=== PATIENT | female | born 1935 | race Caucasian/White ===

== ENCOUNTER 2021-06-06 21:05 | Inpatient (IN) | payer OTHER ==
--- NOTE | 2021-06-06 21:53 | RAD REPORT ---
EXAM DESCRIPTION: RAD - Chest Single View - 06/06/2021 9:44 pm CLINICAL HISTORY: SOB COMPARISON: CHEST PA AND LAT 2 VIEW dated 03/25/2008; CHEST PA AND LAT 2 VIEW dated 10/17/2007 FINDINGS: Lines: Right subclavian approach pacemaker/ICD. Lungs: Increased prominence of the pulmonary vasculature. Pleural: Small right effusion. Cardiac: Cardiomegaly. Status post TAVR. Bones: No acute fractures. Other: Surgical clips in the right upper quadrant. Atherosclerosis. IMPRESSION: Increased prominence of the pulmonary vasculature likely representing edema. Pneumonia d ifficult to entirely exclude.
[2021-06-06] MEDS ORDERED: LEVALBUTEROL 1.25 MG/3 ML NEB ONE (22:23)
[2021-06-06 23:23] LABS: Protime INR 1.03
[2021-06-06] MEDS ORDERED: NA CHLORIDE 0.9% 250 ML ONE (23:23)
[2021-06-06] MEDS ORDERED: FENTANYL CITR 100 MCG/2 ML ONE (23:50)
[2021-06-07 00:46] LABS: Absolute Lymphocytes (CBC) 0.7 K/uL (0.7-4.9); Basophils % 0.2 % (0-1.3); Hematocrit 26.8 % (36.0-45.0); Lymphocytes % 5.6 % (15.3-44.8); MPV 7.8 fL (7.6-11.3); RBC Red Blood Cell Count 2.87 M/uL (3.86-4.86)
[2021-06-07 01:13] LABS: Blood Morphology Comment NOT SEEN (NOT SEEN); Platelet Estimate ADEQ
--- NOTE | 2021-06-07 02:21 | EDPHYS ---
Physician Documentation [facility] Name: Nida Schuster Age: 85 yrs Sex: Female : 1935 Arrival Date: 06/06/2021 Time: 21:11 Bed 2 Private MD: Angelito Veliz HPI: 06/07 00:46 This 85 yrs old Female presents to ER via EMS with complaints of Shortness Of jmm Breath. 00:46 The patient has shortness of breath at rest. Onset: The symptoms/episode began/occurred jmm today. Duration: The symptoms are continuous. The patient's shortness of breath is aggravated by nothing, is alleviated by nothing. Associated signs and symptoms: Pertinent positives: non-productive cough. The patient has experienced similar episodes in the past. Patient recently hospitalized for Covid, pneumonia, and UTI. Daughter states patient is a DNR.. Historical: - Allergies: 06/06 21:22 Codeine; kc4 21:22 PENICILLINS; kc4 21:22 Tetanus Vaccines \T\ Toxoid; kc4 21:22 Tomato (Solanum Lycopersicum); kc4 - Home Meds: 21:30 acetaminophen 325 mg Oral tab 2 tabs every 6 hours for pain [Active]; Arginaid 4.5 kc4 gram-156 mg/9.2 gram oral pwpk [Active]; ascorbic acid (vitamin C) 500 mg tab daily for wound healing [Active]; aspirin 81 mg Oral chew 1 tab once daily for essential hyertension [Active]; atorvastatin 10 mg oral tab 1 tab once daily for hyperlipidemia [Active]; bumetanide 2 mg Oral tab 1 tab once daily for heart failure [Active]; clopidogrel 75 mg oral tab 1 tab once daily for hypertension [Active]; cranberry 450 mg oral tab daily for Urinary tract infection [Active]; famotidine 10 mg Oral tab 1 tab 2 times per day for gastroesophageal reflux disease, heartburn, heartburn prevention [Active]; fluocinolone 0.025 % Topical oint 3 times per day for skin inflammation [Active]; lisinopril 2.5 mg Oral tab 1 tab once daily for hypertension [Active]; metoprolol tartrate 25 mg Oral tab 1 tab 2 times per day for hypertension [Active]; polyethylene glycol 3350 17 gram oral pwpk 1 packet once daily for constipation [Active]; potassium chloride 8 mEq Oral TbER 1 tab once daily for hyretension [Active]; - PMHx: 21:22 Heart disease; Diabetes mellitus; Hypertensive disorder; Congestive heart failure; kc4 History of urinary tract infection; - Immunization history:: Adult Immunizations not up to date, Client reports having NOT received the Covid vaccine. Last tetanus immunization: unknown, Pneumococcal vaccine is up to date, Flu vaccine is up to date. Hepatitis A vaccine status is unknown. Hepatitis B vaccine status is unknown. Meningococcal vaccine status is unknown. - Social history:: Smoking status: Patient denies any tobacco usage or history of. ROS: 06/07 00:46 Constitutional: Positive for body aches, fatigue. jmm Respiratory: Positive for cough, shortness of breath. All other systems are negative. Exam: 00:46 Head/Face: atraumatic. Eyes: EOMI, no conjunctival erythema appreciated ENT: Moist jmm Mucus Membranes Neck: Trachea midline, Supple Chest/axilla: Normal chest wall appearance and motion. Cardiovascular: Regular rate and rhythm. No edema appreciated Respiratory: Normal respirations, no respiratory distress appreciated Abdomen/GI: Non distended, soft 00:46 Constitutional: The patient appears alert, awake, frail. 00:46 Musculoskeletal/extremity: Bilateral pedal edema appreciated. 00:46 Skin: Ulcer noted to the surgery sacral area.. 00:46 Neuro: Motor: is normal. 00:46 Psych: Behavior/mood is cooperative, anxious. Vital Signs: 06/06 21:12 BP 120 / 72; Pulse 82; Resp 20; Temp 98.7(A); Pulse Ox 100% on R/A; Weight 36.29 kg; kc4 Height 5 ft. 4 in. (162.56 cm); Pain 10/10; 23:15 BP 110 / 57; Pulse 88; Resp 22; Temp 98.7(A); Pulse Ox 98% on R/A; Pain 05/21; kc4 06/07 00:41 BP 101 / 41; Pulse 82; Resp 20; Temp 98.6(A); Pulse Ox 100% on R/A; kc4 01:18 BP 102 / 41; Pulse 78; Resp 20; Pulse Ox 100% on R/A; kc4 02:20 BP 104 / 43; Pulse 82; Resp 20; Temp 98.6(A); Pulse Ox 100% on R/A; [facility] 03:28 BP 102 / 52 LA Sitting (man/reg); Pulse 80; Resp 20; Temp 98.7(A); Pulse Ox 99% on R/A; 4 06/06 21:12 Body Mass Index 13.73 (36.29 kg, 162.56 cm) [facility] 01:18 pt sleeping comfortably [facility] Procedures: 06/06 23:10 Peripheral line: by aseptic technique a peripheral line was placed in the right lawrence external jugular vein. MDM: 21:13 Patient medically screened. [facility] 06/07 02:17 Data reviewed: vital signs, nurses notes. Counseling: I had a detailed discussion with [facility] the patient and/or guardian regarding: the historical points, exam findings, and any diagnostic results supporting the discharge/admit diagnosis, lab results, the need for further work-up and treatment in the hospital. 06/06 21:12 Order name: Basic Metabolic Panel [facility] 06/06 21:12 Order name: CBC with Diff; Complete Time: 01:19 [facility] 06/06 21:12 Order name: LFT's [facility] 06/06 21:12 Order name: Magnesium [facility] 06/06 21:12 Order name: NT PRO-BNP [facility] 06/06 21:12 Order name: PT-INR; Complete Time: 23:26 [facility] 06/06 21:12 Order name: Troponin (emerg Dept Use Only) [facility] 06/06 21:12 Order name: XRAY Chest (1 view); Complete Time: 21:58 [facility] 06/06 21:12 Order name: Procalcitonin; Complete Time: 01:19 [facility] 06/06 21:12 Order name: Lactate; Complete Time: 00:02 [facility] 06/06 21:12 Order name: Blood Culture Adult (2) [facility] 06/06 23:17 Order name: SARS-COV-2 RT PCR; Complete Time: 00:16 [facility] 06/07 00:48 Order name: Manual Differential; Complete Time: 01:19 [facility] 06/06 21:12 Order name: EKG; Complete Time: 21:12 [facility] 06/06 21:12 Order name: Cardiac monitoring; Complete Time: 23:14 [facility] 06/06 21:12 Order name: EKG - Nurse/Tech; Complete Time: 23:14 [facility] 06/06 21:12 Order name: IV Saline Lock; Complete Time: 21:56 [facility] 06/06 21:12 Order name: Labs collected and sent; Complete Time: 23:14 [facility] 06/06 21:12 Order name: O2 Per Protocol; Complete Time: 21:56 [facility] 06/06 21:12 Order name: O2 Sat Monitoring; Complete Time: 21:56 [facility] 06/07 00:24 Order name: Misc. Order: Do not resuscitate [facility] 06/07 00:32 Order name: Labs - recollect needed: green and lavender please; Complete Time: 01:40 em Administered Medications: 06/06 22:02 Drug: Xopenex (levalbuterol) (3) 1.25 mg Route: Inhalation; vg1 22:30 Follow up: Response: No adverse reaction kc4 23:14 Follow up: Response: No adverse reaction kc4 22:58 Drug: NS 0.9% 250 ml Route: IV; Rate: bolus; Site: right forearm; em 23:10 Follow up: Response: No adverse reaction; IV Status: Completed infusion kc4 23:25 Drug: fentaNYL (PF) 25 mcg Route: IVP; Site: Other; kc4 06/07 02:46 Follow up: Response: No adverse reaction; Pain is decreased kc4 02:37 Drug: Potassium Chloride 20 mEq Route: IV; Rate: calculated rate; Site: left forearm; kc4 02:38 Drug: NS 0.9% 500 ml Route: IV; Rate: bolus; Site: right jugular; kc4 03:19 Not Given (Physician Discretion): Lovenox (enoxaparin) 1 mg/kg Sub-Q once em Disposition: 08:02 Co-signature as Attending Physician, Angelito Yen MD I agree with the assessment and lawrence plan of care. Disposition Summary: 06/07/21 02:18 Hospitalization Ordered Hospitalization Status: Inpatient Admission [facility] Location: Telemetry/MedSur (Inpatient) jmm Condition: Stable jmm Problem: new jmm Symptoms: are unchanged jmm Bed/Room Type: Standard jmm Provider: Jamar Stack(06/07/21 02:20) [facility] Room Assignment: [facility](06/07/21 02:32) Diagnosis - Hyperosmolality and hypernatremia jmm - Dehydration jmm - Heart failure, unspecified [facility] Discharge Instructions: - Discharge Summary Sheet kc4 Forms: - Medication Reconciliation Form jmm - SBAR form kc4 Signatures: Dispatcher [employer] EDYing Hhan RN Angelito Troy MD MD cha Mickail, Joel, PA PA jmm Munoz, Edgar, RN RN em Attema, Lee, ION IMPLANT MACHINE OPERATOR-C ION IMPLANT MACHINE OPERATOR-[facility]1 Miguelina Moody RN RN 1 Татьяна Hendricks kc4 Corrections: (The following items were deleted from the chart) 06/06 23:17 21:13 CORONAVIRUS+MR.LAB.BRZ ordered. [facility] EDAK 06/07 02:20 02:18 [facility] 02:32 02:18 victorino alexander
--- NOTE | 2021-06-07 02:21 | ER ---
Nurse's Notes [facility] Name: Nida Schuster Age: 85 yrs Sex: Female : 1935 Arrival Date: 06/06/2021 Time: 21:11 Bed 2 Private MD: Diagnosis: Hyperosmolality and hypernatremia;Dehydration;Heart failure, unspecified Presentation: 06/06 21:12 Chief complaint: Patient states: pt came via EMS from [facility]. c/c SOB, kc4 placed on 2 L NC at facility for comfort 02 sat \T\100%\S\ facility also states she has not been eating the last 3 days. Coronavirus screen: Client denies travel out of the [place] in the last 14 days. Ebola Screen: Patient negative for fever greater than or equal to 101.5 degrees Fahrenheit, and additional compatible Ebola Virus Disease symptoms Patient denies exposure to infectious person. Patient denies travel to an Ebola-affected area in the 21 days before illness onset. No symptoms or risks identified at this time. Initial Sepsis Screen: Does the patient meet any 2 criteria? No. Patient's initial sepsis screen is negative. Does the patient have a suspected source of infection? No. Patient's initial sepsis screen is negative. Risk Assessment: Do you want to hurt yourself or someone else? Patient reports no desire to harm self or others. Onset of symptoms was June 06, 2021 at 16:00. 21:12 Method Of Arrival: EMS [facility] 21:12 Acuity: GOPAL 2 kc4 23:40 Note pt straight cath, unable to get any urine. pt is dry. kc4 06/07 00:40 Note re-draw on labs completed. kc4 00:42 Note pt sleeping, appears to be comfortably and not in any apparent distress. kc4 Triage Assessment: 06/06 21:30 General: Appears slender, malnourished, cachectic, Behavior is cooperative, appropriate kc4 for age, flat, quiet, Reports feeling ill for fatigue for 2-3 days, Denies fever, chills. Pain: Complains of pain in generalized Pain currently is 8 out of 10 on a pain scale. at worst was 8 out of 10 on a pain scale. level that patient reports is acceptable is 1 out of 10 on a pain scale. Quality of pain is described as aching, Pain began 2-3 days ago. Is continuous, Alleviated by medications, Aggravated by eating, drinking, increased activity, repositioning, weight bearing, Noted to be resistant to movement. EENT: No deficits noted. Neuro: No deficits noted. Cardiovascular: No deficits noted. Respiratory: Reports shortness of breath since 06/06/21 around 1600 Airway is patent Trachea midline Respiratory effort is even, Respiratory pattern is regular, symmetrical, Ventilator assessment: HOB > 30 degrees. Onset: The symptoms/episode began/occurred gradually, the patient has mild shortness of breath. GI: No deficits noted. No signs and/or symptoms were reported involving the gastrointestinal system. : No deficits noted. No signs and/or symptoms were reported regarding the genitourinary system. Derm: No deficits noted. Skin is thin, with poor turgor Skin is dry, Skin is pale, Skin temperature is warm. Musculoskeletal: No deficits noted. No signs and/or symptoms reported regarding the musculoskeletal system. Historical: - Allergies: 21:22 Codeine; kc4 21:22 PENICILLINS; kc4 21:22 Tetanus Vaccines \T\ Toxoid; kc4 21:22 Tomato (Solanum Lycopersicum); kc4 - Home Meds: 21:30 acetaminophen 325 mg Oral tab 2 tabs every 6 hours for pain [Active]; Arginaid 4.5 kc4 gram-156 mg/9.2 gram oral pwpk [Active]; ascorbic acid (vitamin C) 500 mg tab daily for wound healing [Active]; aspirin 81 mg Oral chew 1 tab once daily for essential hyertension [Active]; atorvastatin 10 mg oral tab 1 tab once daily for hyperlipidemia [Active]; bumetanide 2 mg Oral tab 1 tab once daily for heart failure [Active]; clopidogrel 75 mg oral tab 1 tab once daily for hypertension [Active]; cranberry 450 mg oral tab daily for Urinary tract infection [Active]; famotidine 10 mg Oral tab 1 tab 2 times per day for gastroesophageal reflux disease, heartburn, heartburn prevention [Active]; fluocinolone 0.025 % Topical oint 3 times per day for skin inflammation [Active]; lisinopril 2.5 mg Oral tab 1 tab once daily for hypertension [Active]; metoprolol tartrate 25 mg Oral tab 1 tab 2 times per day for hypertension [Active]; polyethylene glycol 3350 17 gram oral pwpk 1 packet once daily for constipation [Active]; potassium chloride 8 mEq Oral TbER 1 tab once daily for hyretension [Active]; - PMHx: 21:22 Heart disease; Diabetes mellitus; Hypertensive disorder; Congestive heart failure; kc4 History of urinary tract infection; - Immunization history:: Adult Immunizations not up to date, Client reports having NOT received the Covid vaccine. Last tetanus immunization: unknown, Pneumococcal vaccine is up to date, Flu vaccine is up to date. Hepatitis A vaccine status is unknown. Hepatitis B vaccine status is unknown. Meningococcal vaccine status is unknown. - Social history:: Smoking status: Patient denies any tobacco usage or history of. Screenin:47 Abuse screen: Denies threats or abuse. Denies injuries from another. Nutritional kc4 screening: On no prescribed diet Difficulty chewing/swallowing? Yes. Tuberculosis screening: No symptoms or risk factors identified. Never had TB. Possible symptoms: None Risk factors: None. Fall Risk No fall in past 12 months (0 pts). Secondary diagnosis (15 points) impaired mobility, IV access (20 points). Ambulatory Aid- None/Bed Rest/Nurse Assist (0 pts). Gait- Impaired (20 pts.). Mental Status- Oriented to own ability (0 pts). Total Tony Fall Scale indicates High Risk Score (45 or more points). Assessment: 21:50 Respiratory: Airway is patent Trachea midline Respiratory effort is even, Respiratory kc4 pattern is symmetrical, Breath sounds with crackles bilaterally. Breath sounds are diminished bilaterally. 21:50 Cardiovascular: Denies chest pain, diaphoresis, lightheadedness, nausea, palpitations, kc4 syncope, vomiting, Rhythm is atrial pacer Chest pain is denied. 23:30 General: Appears uncomfortable, malnourished, cachectic, Behavior is cooperative, kc4 appropriate for age, restless. Pain: Complains of pain in buttocks Pain currently is 8 out of 10 on a pain scale. at worst was 10 out of 10 on a pain scale. level that patient reports is acceptable is 1 out of 10 on a pain scale. Quality of pain is described as aching, sharp, throbbing, stinging, Pain began Is continuous, Alleviated by medications, repositioning, Aggravated by repositioning, Noted to be moaning, restless, Also complains of. Neuro: Level of Consciousness is awake, alert, obeys commands, Oriented to person, place, time, situation, Appropriate for age [employer] Cash[employer] are weak bilaterally Weakness Gait is Speech whispers. Facial symmetry appears normal. EENT: Oral mucosa is dry. Reports difficulty swallowing. Derm: Decubitus located on sacrum approximately 1.5 cm to 2.5 cm is stage II has erythematous edges bed has granulation present is draining none noted Reports increased pain that is 8 out of 10 on a pain scale. Musculoskeletal:. Vital Signs: 21:12 BP 120 / 72; Pulse 82; Resp 20; Temp 98.7(A); Pulse Ox 100% on R/A; Weight 36.29 kg; kc4 Height 5 ft. 4 in. (162.56 cm); Pain 10/10; 23:15 BP 110 / 57; Pulse 88; Resp 22; Temp 98.7(A); Pulse Ox 98% on R/A; Pain 10/10; kc4 06/07 00:41 BP 101 / 41; Pulse 82; Resp 20; Temp 98.6(A); Pulse Ox 100% on R/A; kc4 01:18 BP 102 / 41; Pulse 78; Resp 20; Pulse Ox 100% on R/A; kc4 02:20 BP 104 / 43; Pulse 82; Resp 20; Temp 98.6(A); Pulse Ox 100% on R/A; kc4 03:28 BP 102 / 52 LA Sitting (man/reg); Pulse 80; Resp 20; Temp 98.7(A); Pulse Ox 99% on R/A; kc4 06/06 21:12 Body Mass Index 13.73 (36.29 kg, 162.56 cm) kc4 01:18 pt sleeping comfortably kc4 Vitals: 06/06 23:37 Cardiac Rhythm Assessment Paced. kc4 ED Course: 21:11 Patient arrived in ED. kc4 21:11 Aleksandr Gutiérrez PA is PHCP. jmm 21:11 Angelito Yen MD is Attending Physician. jmm 21:12 Татьяна Hendricks is Primary Nurse. kc4 21:22 Triage completed. kc4 21:39 Missed attempt(s): 20 gauge in right antecubital area. ld1 21:44 XRAY Chest (1 view) In Process Unspecified. EDMS 21:46 Arm band placed on right wrist. kc4 21:49 pt daughter at bs. kc4 21:52 No provider procedures requiring assistance completed. Inserted saline lock: 20 gauge kc4 in right forearm, using aseptic technique. 21:53 Patient has correct armband on for positive identification. Bed in low position. Call kc4 light in reach. Side rails up X2. control clerk subassembly on. Pulse ox on. NIBP on. 23:14 Lactate Sent. kc4 23:14 Blood Culture Adult (2) Sent. kc4 23:14 Procalcitonin Sent. kc4 23:14 Basic Metabolic Panel Sent. kc4 23:14 CBC with Diff Sent. kc4 23:14 LFT's Sent. kc4 23:14 Magnesium Sent. kc4 23:14 NT PRO-BNP Sent. kc4 23:14 PT-INR Sent. kc4 23:14 Troponin (emerg Dept Use Only) Sent. kc4 23:15 Inserted saline lock: 18 gauge EJ, using aseptic technique. kc4 23:21 SARS-COV-2 RT PCR Sent. kc4 06/07 02:17 Jamar Stack DO is Hospitalizing Provider. jm 02:17 Hospitalizing Provider role handed off by Jamar Stack DO jm 02:17 Ramiro Phillips MD is Hospitalizing Provider. [facility] 02:20 Jamar Stack DO is Hospitalizing Provider. [facility] 03:28 Patient admitted, IV remains in place. kc4 Administered Medications: 06/06 22:02 Drug: Xopenex (levalbuterol) (3) 1.25 mg Route: Inhalation; vg1 22:30 Follow up: Response: No adverse reaction kc4 23:14 Follow up: Response: No adverse reaction kc4 22:58 Drug: NS 0.9% 250 ml Route: IV; Rate: bolus; Site: right forearm; em 23:10 Follow up: Response: No adverse reaction; IV Status: Completed infusion kc4 23:25 Drug: fentaNYL (PF) 25 mcg Route: IVP; Site: Other; kc4 06/07 02:46 Follow up: Response: No adverse reaction; Pain is decreased kc4 02:37 Drug: Potassium Chloride 20 mEq Route: IV; Rate: calculated rate; Site: left forearm; kc4 02:38 Drug: NS 0.9% 500 ml Route: IV; Rate: bolus; Site: right jugular; kc 03:19 Not Given (Physician Discretion): Lovenox (enoxaparin) 1 mg/kg Sub-Q once em Outcome: 02:18 Decision to Hospitalize by Provider. victorino 03:27 Admitted to Tele accompanied by nurse, via stretcher, room 404, Report called to [facility] Prince Moody 03:27 Condition: stable 03:27 Instructed on the need for admit. 04:11 Patient left the ED. [facility] Signatures: Dispatcher [employer] EDMS Aleksandr Gutiérrez PA PA jmm Munoz, Edgar, RN RN Miguelina Reyes RN RN vg1 Vera Hudson RN RN ld1 Татьяна Hendricks [facility] Corrections: (The following items were deleted from the chart) 06/06 23:17 23:14 CORONAVIRUS+ drawn and sent. [facility] EDCO
[2021-06-07] MEDS ORDERED: NA CHLORIDE 0.9% 500 ML ONE (02:53)
[2021-06-07] MEDS ORDERED: KCL 20 MEQ/100 mL IVPB 20 MEQ/100 ML BAG IV ONE (02:54)
[2021-06-07] MEDS ORDERED: NA CHLORIDE 0.9% 1,000 ML ONE (02:54)
[2021-06-07] MEDS ORDERED: ENOXAPARIN 40 MG/0.4 ML SQ ONE (03:42)
--- NOTE | 2021-06-07 04:23 | P.HP ---
Certification for Inpatient Patient admitted to: Inpatient With expected LOS: >2 Midnights Patient will require the following post-hospital care: None Practitioner: I am a practitioner with admitting privileges, knowledge of patient current condition, hospital course, and medical plan of care. Services: Services provided to patient in accordance with Admission requirements found in Title 42 Section 412.3 of the Code of Federal Regulations Patient History Date of Service: 06/07/21 Primary Care Provider: [facility] doctor Reason for admission: Dehydration, hypernatremia History of Present Illness: 85-year-old female resident of [facility] was complaining of shortness of breath, staff reported that patient has not been eating or drinking for last 3 days. Patient appeared cachectic, dehydrated upon arrival, patient was evaluated in the emergency department labs were significant for white blood cell count 12.7 hemoglobin 8.8 hematocrit 26.8 lactic acid 2.6 procalcitonin less than 0.05 sodium 153 potassium 2.5 albumin 1.5 BUN 63 CO2 31 magnesium 1.7 creatinine 1.12 BNP significantly elevated troponin 0 0.43 chloride 118. Chest x-ray appeared to show some increased prominence of pulmonary vasculature likely representing edema. Patient was given 500 cc NS bolus and started on NS 75 cc/h in the emergency department. Daughters at bedside, patient is DNR. Patient with history of CHF, CAD, diabetes mellitus type 2, hypertension and urinary tract infections. ED provider wishes to admit for dehydration, NSTEMI, hypernatremia, hypokalemia - Past Medical/Surgical History Diabetic: Yes -: CHFunknown EF -: Diabetes mellitus type II -: Hypertension -: CAD Past Surgical History: Unable to obtain Psychosocial/ Personal History: currently a resident at [facility] - Family History Family History: Reviewed- Non-Contributory - Social History Smoking Status: Unknown if ever smoked Alcohol use: No CD- Drugs: No Caffeine use: No Place of Residence: [facility] Review of Systems 10-point ROS is otherwise unremarkable General: Weakness, Malaise Respiratory: Cough, Shortness of Breath Physical Examination - Physical Exam General: Alert, In no apparent distress, Oriented x2, Cachectic HEENT: Atraumatic, PERRLA, Other (Mucous membranes dry, poor skin turgor), EOMI, Sclerae nonicteric Neck: Supple, 2+ carotid pulse no bruit, No LAD, Without JVD or thyroid abnormality Respiratory: Clear to auscultation bilaterally, Normal air movement Cardiovascular: Regular rate/rhythm, Normal S1 S2 Capillary refill: <2 Seconds Gastrointestinal: Normal bowel sounds, No tenderness Musculoskeletal: No tenderness Integumentary: No rashes Neurological: Normal speech, Normal tone, Normal affect - Studies Laboratory Data (last 24 hrs) 06/07/21 00:37: WBC 12.70 H, Hgb 8.8 L, Hct 26.8 L, Plt Count 322 06/06/21 23:00: PT 11.9, INR 1.03 Assessment and Plan - Plan Assessment: Dehydration, hypernatremia Hypokalemia NSTEMI Normocytic anemia Chronic congestive heart failureunknown EF Diabetes mellitus type 2 History of CAD Plan: Dehydration, hypernatremia: Continue with gentle hydration, NS at 75 cc/h recheck with daily labs. Patient with poor oral intake. Hypokalemia: Protocol in place, replaced in the emergency department as well. Will monitor with labs. NSTEMI: Patient denies any chest pain, have continued aspirin, Plavix which patient takes at home, patient did receive a dose of full dose Lovenox in the emergency department. Cardiology consult in place, echocardiogram ordered. Likely related to dehydration/demand ischemia. Normocytic anemia: Transfuse to maintain hemoglobin greater than 8, iron, ferritin, TIBC, folate, B12 levels pending. Chronic congestive heart failureunknown EF: Patient with history of CHFunknown when last echocardiogram was. Will order echocardiogram, cardiology consult already in place for NSTEMI. Diabetes mellitus type 2: A [facility] Accu-Chek, sliding scale insulin. History of CAD: Home medications continued including aspirin, Plavix. Monitor on telemetry continue as above. Discharge Plan: Home Plan to discharge in: Greater than 2 days - Advance Directives Does patient have a Living Will: No Does patient have a Durable POA for Healthcare: No - Code Status/Comfort Care Code Status Assessed: Yes (DNR) Critical Care: No Time Spent Managing Pts Care (In Minutes): 55
[2021-06-07 05:03] LABS: Albumin 1.5 g/dL (3.4-5.0); Bilirubin Direct 0.1 mg/dL (0-0.2); Bilirubin Total 0.3 mg/dL (0.2-1.0); Magnesium 1.7 mg/dL (1.8-2.4); Protein, Total 5.4 g/dL (6.4-8.2); Troponin (Emerg Dept Use Only) 0.44 ng/mL (0.0-0.045)
[2021-06-07 05:24] LABS: Potassium 2.5 mmol/L (3.5-5.1)
[2021-06-07] MEDS ORDERED: METOPROLOL TAR 25 MG TAB PO SCH ×2 (06:00→06:51)
[2021-06-07] MEDS ORDERED: NA CHLORIDE 0.9% 1,000 ML IV SCH (06:00)
[2021-06-07] MEDS ORDERED: D50W 25 GM/50 ML SYRINGE IV PRN (06:03)
[2021-06-07] MEDS ORDERED: GLUCAGON 1 MG/VIAL IM PRN (06:03)
--- NOTE | 2021-06-07 06:11 | P.PN ---
Subjective Date of Service: 06/07/21 Primary Care Provider: senior care doctor Chief Complaint: Dehydration, hypernatremia Subjective: Other (Overall stable. Patient reports difficulty with swallowing.) Physical Examination - Vital Signs Temperature: 98.7 F Blood Pressure: 102/52 Pulse: 80 Respirations: 20 - Studies Laboratory Data (last 24 hrs) 06/07/21 00:37: WBC 12.70 H, Hgb 8.8 L, Hct 26.8 L, Plt Count 322 06/07/21 00:37: Sodium 152 H, Potassium 2.5 L*, BUN 63 H, Creatinine 1.12, Glucose 161 H, Magnesium 1.7 L, Total Bilirubin 0.3, AST 13 L, ALT 11 L, Alkaline Phosphatase 73 06/06/21 23:00: PT 11.9, INR 1.03 Assessment & Plan Discharge Plan: Halfway Plan to discharge in: Greater than 2 days Physician Review Additional Text: COVID: Positive CXR: COMPARISON: CHEST PA AND LAT 2 VIEW dated 03/25/2008; CHEST PA AND LAT 2 VIEW dated 10/17/2007 FINDINGS: Lines: Right subclavian approach pacemaker/ICD. Lungs: Increased prominence of the pulmonary vasculature. Pleural: Small right effusion. Cardiac: Cardiomegaly. Status post TAVR. Bones: No acute fractures. Other: Surgical clips in the right upper quadrant. Atherosclerosis. IMPRESSION: Increased prominence of the pulmonary vasculature likely representing edema. Pneumonia difficult to entirely exclude. Physical exam: General: Alert, In no apparent distress, Oriented x2, Cachectic HEENT: Dry mouth Neck: Supple, 2+ carotid pulse no bruit, No LAD, Without JVD or thyroid abnormality Respiratory: Clear to auscultation bilaterally, Normal air movement. Currently on room air Cardiovascular: Regular rate/rhythm, Normal S1 S2 Capillary refill: <2 Seconds Gastrointestinal: Normal bowel sounds, No tenderness Musculoskeletal: No tenderness Integumentary: No rashes. Muscle wasting to the upper and lower extremities. Patient has chronic sacral ulcer. Neurological: Normal speech, Normal tone, Normal affect Assessment: Dehydration with moderate protein malnutrition complicated with hypernatremia and hypokalemia Elevated troponin likely ischemic demand Normocytic anemia Chronic congestive heart failureunknown EF Diabetes mellitus type 2 History of CAD Hypertension GERD Insomnia Chronic sacral ulcer Dysphagia Covid positive, asymptomatic Plan: Dehydration with moderate protein malnutrition complicated with hypernatremia and Hypokalemia: Case discussed in detail with daughter. Advanced directives addressed. Patient is DO NOT RESUSCITATE. Patient has been in and out of hospitals over the past several months for Covid, UTI and CHF. Daughter also reports patient has had difficulty with swallowing. Will start nystatin and Magic mouthwash. Will adjust IV fluids to D5 water. Recheck lab later today. Will consult speech therapy to evaluate swallowing. Patient may require modified barium swallow. Wound care consulted to address sacral wound. Restart home medication. Provide vitamin supplementation. Dietary to address daily needs. If her condition continues to decline we will respect her advanced directives. Daughter does not want any significant intervention like feeding tube, PEG tube. [facility] the [facility] 5 days. Case discussed at length with daughter. Elevated troponin likely ischemic demand: Case discussed at length with cardiology. No intervention required at this time. Continue with aspirin, Plavix. DVT prophylaxis in place. Normocytic anemia: Continue vitamin supplementation. Monitor hemoglobin. Chronic congestive heart failureunknown EF: We will obtain echocardiogram. Cardiology recommends no further intervention. Will monitor closely. Hold diuretic therapy at this time. Diabetes mellitus type 2: Continue Accu-Cheks and sliding scale. History of CAD: Continue with aspirin and Plavix. Hypertension: Continue with metoprolol. Parameters in place. GERD: Continue with Pepcid Insomnia: Continue with trazodone Chronic sacral ulcer: Wound care to evaluate and treat. Dysphagia: Suspect candidiasis. Will start nystatin. Will provide swish and swallow solutionMagic mouthwash. Speech pathology to evaluate. Covid positive asymptomatic: Patient recently hospitalized for Covid. Currently on room air. No intervention needed at this time. Discharge Plan: Spoke with daughter at length. Patient is DO NOT RESUSCITATE. Daughter plans to have patient [facility] the [facility]. No aggressive measures as per daughter. Code Status: DNR DVT prophylaxis: [employer] Time Spent Managing Pts Care (In Minutes): 55
[2021-06-07 06:39] VITALS: BMI 14.1
[2021-06-07] MEDS ORDERED: POLYETHYL GLY 3350 17 GM/DOSE PO PRN (06:51)
[2021-06-07] MEDS: INSULIN -REGULAR HUMAN 50 UNIT/0.5 ML ML SQ SCH ×4 (07:30→21:00)
[2021-06-07 07:35] LABS: Ferritin 609.7 ng/mL (8-388); Folic Acid, (Folate) 13.1 ng/mL (3.1-17.5); Thyroid Stimulating Hormone 1.47 uIU/mL (0.360-3.740); Troponin I 0.35 ng/mL (0.0-0.045)
[2021-06-07] MEDS: ZINC SULFATE 220 MG CAP PO SCH (08:03)
[2021-06-07] MEDS: ASPIRIN 81 MG CHEWABLE TABLET PO SCH (08:03)
[2021-06-07] MEDS: ASCORBIC ACID 500 MG TABLET PO SCH ×2 (08:03→21:18)
[2021-06-07] MEDS: MULTIVITAMIN TAB PO SCH (08:03)
[2021-06-07] MEDS: FAMOTIDINE 20 MG TAB PO SCH (08:04)
[2021-06-07] MEDS: CLOPIDOGREL 75 MG TABLET PO SCH (08:04)
[2021-06-07] MEDS: METOPROLOL TAR 25 MG TAB PO SCH (08:04)
[2021-06-07] MEDS: ENOXAPARIN 30 MG/0.3 ML SQ SCH (08:05)
[2021-06-07] MEDS ORDERED: FLUOCINONIDE TOP SCH (09:00)
[2021-06-07] MEDS ORDERED: EMOLLIENT BASE TOP SCH (09:00)
[2021-06-07] MEDS ORDERED: MAGNESIUM SULFATE 1 gm IVPB 1 GM/100 ML BAG IV ONE (09:00)
[2021-06-07] MEDS: CRANBERRY FRUIT EXTRACT 400 MG CAP PO SCH (10:18)
[2021-06-07] MEDS: MEDIHONEY 44 ML TOPICAL TUBE TOP SCH (10:18)
[2021-06-07] MEDS ORDERED: MAGIC MOUTHWASH 180 ML BTL PO PRN (10:27)
[2021-06-07] MEDS: D5W 1,000 ML IV SCH (10:50)
[2021-06-07] MEDS ORDERED: PNEUMOCOCCAL VACCINE 0.5 ML IMVAC ONE (12:00)
[2021-06-07] MEDS: HYDROCODONE/APAP 7.5/325 MG TAB PO PRN (12:40)
[2021-06-07 13:00] LABS: Troponin I 0.32 ng/mL (0.0-0.045)
[2021-06-07 13:01] LABS: Potassium 3.3 mmol/L (3.5-5.1)
[2021-06-07] MEDS: NYSTATIN 500,000 UNIT/5 ML UDC PO SCH ×2 (13:39→21:00)
[2021-06-07] MEDS: KCL 20 MEQ/100 mL IVPB 20 MEQ/100 ML BAG IV SCH ×2 (14:10→16:57)
[2021-06-07] MEDS: TRAMADOL HCL 50 MG TAB PO PRN (16:06)
--- NOTE | 2021-06-07 16:08 | EKG ---
Test Date: 2021-06-06 Test Time: 22:24:26 Speed Belt Sander Tender: NATASHA MEASUREMENT RESULTS: Intervals: Rate: 89 ID: [id number] QRSD: 144 QT: 422 QTc: 513 [place]: P: 27 ID: [id number] QRS: -28 T: 181 INTERPRETIVE STATEMENTS: Sinus rhythm with marked sinus arrhythmia Left bundle branch block Abnormal ECG Compared to ECG 09/10/2007 22:24:02 Left bundle-branch block now present ST (T wave) deviation no longer present Prolonged QT interval no longer present Electronically Signed On 06-07-21 16:07:05 CDT by Del Monroe
[2021-06-07] MEDS ORDERED: ALBUTEROL 2.5 MG/3 ML NEB SOL NEB PRN (18:05)
[2021-06-07 20:29] LABS: Potassium 3.7 mmol/L (3.5-5.1)
[2021-06-07] MEDS: AMINO ACIDS PO SCH (21:00)
[2021-06-07] MEDS: PROTEIN HYDROLYS PO SCH (21:00)
[2021-06-07] MEDS: ATORVASTATIN 10 MG TAB PO SCH (21:17)
[2021-06-07] MEDS: TRAZODONE 50 MG TABLET PO SCH (21:17)
[2021-06-08] MEDS: D5W 1,000 ML IV SCH ×2 (00:20→13:35)
--- NOTE | 2021-06-08 05:58 | P.PN ---
Subjective Date of Service: 06/08/21 Primary Care Provider: [facility] doctor Chief Complaint: Dehydration, hypernatremia Subjective: Improving, Other (Improvement noted) Physical Examination - Vital Signs Temperature: 97.8 F Blood Pressure: 100/54 Pulse: 80 Respirations: 18 Pulse Ox (%): 96 Assessment & Plan Discharge Plan: Long-Term Plan to discharge in: Greater than 2 days Physician Review Additional Text: COVID: Positive CXR: COMPARISON: CHEST PA AND LAT 2 VIEW dated 03/25/2008; CHEST PA AND LAT 2 VIEW dated 10/17/2007 FINDINGS: Lines: Right subclavian approach pacemaker/ICD. Lungs: Increased prominence of the pulmonary vasculature. Pleural: Small right effusion. Cardiac: Cardiomegaly. Status post TAVR. Bones: No acute fractures. Other: Surgical clips in the right upper quadrant. Atherosclerosis. IMPRESSION: Increased prominence of the pulmonary vasculature likely representing edema. Pneumonia difficult to entirely exclude. Follow up CXR 06/08/2021: COMPARISON: June 06 TECHNIQUE: AP portable chest image was obtained 06/08/2021 10:04 am . FINDINGS: Lung volumes are low. Lung parenchymal opacification is not clearly different when adjusting for technique and inspiratory differences. Right-sided pleural effusion shows no improvement. Pulmonary vasculature remains prominent. Heart size is normal range for portable imaging. Trachea is in the midline. Left-sided Port-A-Cath remains in place. No pneumothorax. No acute bony abnormality seen. No acute aortic findings suspected. IMPRESSION: No improvement in the right-sided pleural effusion. Right-sided lung parenchymal opacification also without clear change. ECHO: MEASUREMENTS (cm) DIASTOLIC (NORMALS) SYSTOLIC (NORMALS) IVSd 1.1 (0.6-1.2) LA Diam 3.9 (1.9-4.0) LVEF 17% LVIDd 5.1 (3.5-5.7) LVIDs 4.7 (2.0-3.5) %FS 8% LVPWd 1.1 (0.6-1.2) Ao Diam 1.8 (2.0-3.7) 2 DIMENSIONAL ASSESSMENT: RIGHT ATRIUM: NORMAL LEFT ATRIUM: NORMAL RIGHT VENTRICLE: NORMAL LEFT VENTRICLE: NORMAL SIZE TRICUSPID VALVE: NORMAL MITRAL VALVE: MITRAL ANNULAR CALCIFICATION PULMONIC VALVE: NORMAL AORTIC VALVE: SCLEROSIS PERICARDIAL EFFUSION: NONE AORTIC ROOT: NORMAL LEFT VENTRICULAR WALL MOTION: SEVERE GLOBAL HYPOKINESIS. DOPPLER/COLOR FLOW: MILD TRICUSPID REGURGITATION. COMMENTS: LARGE PLEURAL EFFUSION. LEFT VENTRICULAR EJECTION FRACTION 17%. SEVERE GLOBAL HYPOKINESIS. MITRAL ANNULAR CALCIFICATION. MILD TRICUSPID REGURGITATION. NORMAL RIGHT VENTRICULAR SYSTOLIC PRESSURE. Physical exam: General: Alert, In no apparent distress, Oriented x2, Cachectic HEENT: Dry mouth Neck: Neck supple Respiratory: Currently on 1 L Cardiovascular: Regular rate/rhythm, Normal S1 S2 Capillary refill: <2 Seconds Gastrointestinal: Normal bowel sounds, No tenderness Musculoskeletal: No tenderness Integumentary: No rashes. Muscle wasting to the upper and lower extremities. Patient has chronic sacral ulcer. Neurological: Normal speech, Normal tone, Normal affect Assessment: Dehydration with moderate protein malnutrition complicated with hypernatremia and hypokalemia Elevated troponin likely ischemic demand Normocytic anemia Acute on chronic systolic congestive heart failure with ejection fraction 17% complicated with right pleural effusion Diabetes mellitus type 2 History of CAD Hypertension GERD Insomnia Chronic sacral ulcer Dysphagia Covid positive, asymptomatic Plan: Dehydration with moderate protein malnutrition complicated with hypernatremia and Hypokalemia: Patient remained stable at this time. Continue with plan of care. IV fluids adjusted. Continue with Magic mouthwash and nystatin. Will check to see if the patient can tolerate her diet. Encourage oral intake. Dietary consulted. Continue wound care instructions for sacral wound. Speech therapy recommends pured diet. We will continue to monitor closely. Anticipate continued improvement in the next 3 to 5 days. Patient remains DO NOT RESUSCITATE. Discussed with daughter. Elevated troponin likely ischemic demand: Case discussed at length with cardiology. No intervention required at this time. Continue with aspirin, Plavix. DVT prophylaxis in place. Normocytic anemia: Continue vitamin supplementation. Monitor hemoglobin. Acute on chronic systolic heart failure with ejection fraction 17% complicated with right pleural effusion: Echo reviewed. Ejection fraction 70%. Cardiology recommends no further intervention. Will monitor closely. Restart Bumex. Will monitor x-ray. If pleural effusion worse consider thoracentesis. Will discuss with pulmonology. Diabetes mellitus type 2: Continue Accu-Cheks and sliding scale. History of CAD: Continue with aspirin and Plavix. Hypertension: Continue with metoprolol. Parameters in place. GERD: Continue with Pepcid Insomnia: Continue with trazodone Chronic sacral ulcer: Wound care to evaluate and treat. Dysphagia: Continue nystatin. Continue swish and swallow solutionMagic mouthwash. Speech recommends pured diet Covid positive asymptomatic: Patient recently hospitalized for Covid. Currently on room air. No intervention needed at this time. Discharge Plan: Spoke with daughter at length. Patient is DO NOT RESUSCITATE. Daughter plans to have patient return back to the assisted. No aggressive measures as per daughter. Code Status: DNR DVT prophylaxis: Isabelle Time Spent Managing Pts Care (In Minutes): 55
[2021-06-08 06:05] LABS: Absolute Lymphocytes (CBC) 1.1 K/uL (0.7-4.9); Basophils % 0.3 % (0-1.3); Hematocrit 27.1 % (36.0-45.0); Lymphocytes % 9.6 % (15.3-44.8); MPV 8.2 fL (7.6-11.3)
[2021-06-08 06:18] LABS: Albumin 1.4 g/dL (3.4-5.0); Bilirubin Total 0.2 mg/dL (0.2-1.0); Magnesium 2.2 mg/dL (1.8-2.4); Potassium 3.4 mmol/L (3.5-5.1); Protein, Total 5.4 g/dL (6.4-8.2)
--- NOTE | 2021-06-08 07:15 | ECHO ---
HEIGHT: 5 ft 4 in WEIGHT: 82 lb 0 oz DATE OF STUDY: 06/07/[address]: Eduardo Licea NP 2-DIMENSIONAL: YES M.MODE: YES DOPPLER: YES COLOR FLOW: YES TDS: NO PORTABLE: NO DEFINITY: NO BUBBLE STUDY: NO DIAGNOSIS: CONGESTIVE HEART FAILURE CARDIAC HISTORY: CATHERIZATION: YES SURGERY: NO PROSTHETIC VALVE: NO PACEMAKER: YES MEASUREMENTS (cm) DIASTOLIC (NORMALS) SYSTOLIC (NORMALS) IVSd 1.1 (0.6-1.2) LA Diam 3.9 (1.9-4.0) LVEF 17% LVIDd 5.1 (3.5-5.7) LVIDs 4.7 (2.0-3.5) %FS 8% LVPWd 1.1 (0.6-1.2) Ao Diam 1.8 (2.0-3.7) 2 DIMENSIONAL ASSESSMENT: RIGHT ATRIUM: NORMAL LEFT ATRIUM: NORMAL RIGHT VENTRICLE: NORMAL LEFT VENTRICLE: NORMAL SIZE TRICUSPID VALVE: NORMAL MITRAL VALVE: MITRAL ANNULAR CALCIFICATION PULMONIC VALVE: NORMAL AORTIC VALVE: SCLEROSIS PERICARDIAL EFFUSION: NONE AORTIC ROOT: NORMAL LEFT VENTRICULAR WALL MOTION: SEVERE GLOBAL HYPOKINESIS. DOPPLER/COLOR FLOW: MILD TRICUSPID REGURGITATION. COMMENTS: LARGE PLEURAL EFFUSION. LEFT VENTRICULAR EJECTION FRACTION 17%. SEVERE GLOBAL HYPOKINESIS. MITRAL ANNULAR CALCIFICATION. MILD TRICUSPID REGURGITATION. NORMAL RIGHT VENTRICULAR SYSTOLIC PRESSURE. TECHNOLOGIST: Vladimir SANTOS
[2021-06-08] MEDS: INSULIN -REGULAR HUMAN 50 UNIT/0.5 ML ML SQ SCH ×4 (07:30→20:18)
[2021-06-08] MEDS: ASPIRIN 81 MG CHEWABLE TABLET PO SCH (09:42)
[2021-06-08] MEDS: NYSTATIN 500,000 UNIT/5 ML UDC PO SCH ×3 (09:42→20:16)
[2021-06-08] MEDS: ASCORBIC ACID 500 MG TABLET PO SCH ×2 (09:42→20:16)
[2021-06-08] MEDS: ZINC SULFATE 220 MG CAP PO SCH (09:42)
[2021-06-08] MEDS: FAMOTIDINE 20 MG TAB PO SCH (09:42)
[2021-06-08] MEDS: THIAMINE 200 MG/2 ML INJ IVP SCH (09:42)
[2021-06-08] MEDS: CRANBERRY FRUIT EXTRACT 400 MG CAP PO SCH (09:43)
[2021-06-08] MEDS: CLOPIDOGREL 75 MG TABLET PO SCH (09:43)
[2021-06-08] MEDS: ENOXAPARIN 30 MG/0.3 ML SQ SCH (09:43)
[2021-06-08] MEDS: MULTIVITAMIN TAB PO SCH (09:43)
[2021-06-08] MEDS: METOPROLOL TAR 25 MG TAB PO SCH (09:44)
[2021-06-08] MEDS: KCL 20 MEQ/100 mL IVPB 20 MEQ/100 ML BAG IV SCH ×2 (09:45→11:45)
[2021-06-08] MEDS: MEDIHONEY 44 ML TOPICAL TUBE TOP SCH (09:47)
--- NOTE | 2021-06-08 10:19 | RAD REPORT ---
EXAM DESCRIPTION: RAD - Chest Single View - 06/08/2021 10:04 am CLINICAL HISTORY: follow up CHF/Pleural effusion COMPARISON: June 06 TECHNIQUE: AP portable chest image was obtained 06/08/2021 10:04 am . FINDINGS: Lung volumes are low. Lung parenchymal opacification is not clearly different when adjusti ng for technique and inspiratory differences. Right-sided pleural effusion shows no improvement. Pulmonary vasculature remains prominent. Heart size is normal range for portable imaging. Trachea is in the midline. Left-sided Port-A-Cath remains in place. No pneumothorax. No acute bony abnormality s een. No acute aortic findings suspected. IMPRESSION: No improvement in the right-sided pleural effusion. Right-sided lung parenchymal opacification also without clear change.
[2021-06-08] MEDS ORDERED: PNEUMOCOCCAL VACCINE 0.5 ML IMVAC ONE (18:00)
[2021-06-08] MEDS: TRAZODONE 50 MG TABLET PO SCH (20:15)
[2021-06-08] MEDS: ATORVASTATIN 10 MG TAB PO SCH (20:15)
[2021-06-08] MEDS: GLUCERNA SHAKE 237 ML CAN PO SCH (21:00)
[2021-06-08] MEDS: PROTEIN HYDROLYS PO SCH (21:00)
[2021-06-08] MEDS: AMINO ACIDS PO SCH (21:00)
[2021-06-08] MEDS: JUVEN PACKET PO SCH (21:00)
[2021-06-09 05:09] LABS: Absolute Lymphocytes (CBC) 1.2 K/uL (0.7-4.9); Basophils % 0.4 % (0-1.3); Hematocrit 29.5 % (36.0-45.0); Lymphocytes % 10.2 % (15.3-44.8); MPV 8.5 fL (7.6-11.3); RBC Red Blood Cell Count 3.16 M/uL (3.86-4.86)
[2021-06-09 05:40] LABS: Albumin 1.6 g/dL (3.4-5.0); Bilirubin Total 0.3 mg/dL (0.2-1.0); Ferritin 394.4 ng/mL (8-388); Protein, Total 5.9 g/dL (6.4-8.2)
--- NOTE | 2021-06-09 06:01 | P.PN ---
Subjective Date of Service: 06/09/21 Primary Care Provider: intermediate doctor Chief Complaint: Dehydration, hypernatremia Subjective: Improving, Doing well Physical Examination - Vital Signs Temperature: 98.0 F Blood Pressure: 103/58 Pulse: 82 Respirations: 16 Pulse Ox (%): 95 Assessment & Plan Discharge Plan: Group Home Plan to discharge in: 24 Hours Physician Review Additional Text: COVID: Positive CXR: COMPARISON: CHEST PA AND LAT 2 VIEW dated 03/25/2008; CHEST PA AND LAT 2 VIEW dated 10/17/2007 FINDINGS: Lines: Right subclavian approach pacemaker/ICD. Lungs: Increased prominence of the pulmonary vasculature. Pleural: Small right effusion. Cardiac: Cardiomegaly. Status post TAVR. Bones: No acute fractures. Other: Surgical clips in the right upper quadrant. Atherosclerosis. IMPRESSION: Increased prominence of the pulmonary vasculature likely representing edema. Pneumonia difficult to entirely exclude. Follow up CXR 06/09/2021: COMPARISON: Chest Single View dated 06/08/2021; Chest Single View dated 06/06/2021; CHEST PA AND LAT 2 VIEW dated 03/25/2008; CHEST PA AND LAT 2 VIEW dated 10/17/2007 FINDINGS: Lines: Pacemaker/ICD. Left subclavian approach Port-A-Cath with tip overlying the left brachiocephalic vein. Lungs: Similar bilateral pulmonary edema. Pleural: Bilateral pleural effusions. Cardiac: Cardiomegaly. Status post TAVR. Bones: No acute fractures. IMPRESSION: Unchanged bilateral airspace disease and pleural effusions which may reflect either multifocal pneumonia and/or pulmonary edema. ECHO: MEASUREMENTS (cm) DIASTOLIC (NORMALS) SYSTOLIC (NORMALS) IVSd 1.1 (0.6-1.2) LA Diam 3.9 (1.9-4.0) LVEF 17% LVIDd 5.1 (3.5-5.7) LVIDs 4.7 (2.0-3.5) %FS 8% LVPWd 1.1 (0.6-1.2) Ao Diam 1.8 (2.0-3.7) 2 DIMENSIONAL ASSESSMENT: RIGHT ATRIUM: NORMAL LEFT ATRIUM: NORMAL RIGHT VENTRICLE: NORMAL LEFT VENTRICLE: NORMAL SIZE TRICUSPID VALVE: NORMAL MITRAL VALVE: MITRAL ANNULAR CALCIFICATION PULMONIC VALVE: NORMAL AORTIC VALVE: SCLEROSIS PERICARDIAL EFFUSION: NONE AORTIC ROOT: NORMAL LEFT VENTRICULAR WALL MOTION: SEVERE GLOBAL HYPOKINESIS. DOPPLER/COLOR FLOW: MILD TRICUSPID REGURGITATION. COMMENTS: LARGE PLEURAL EFFUSION. LEFT VENTRICULAR EJECTION FRACTION 17%. SEVERE GLOBAL HYPOKINESIS. MITRAL ANNULAR CALCIFICATION. MILD TRICUSPID REGURGITATION. NORMAL RIGHT VENTRICULAR SYSTOLIC PRESSURE. Physical exam: General: Alert, In no apparent distress, Oriented x2, Cachectic HEENT: Dry mouth improved Neck: Neck supple Respiratory: Overall improved. Currently on 1 to 2 L. Cardiovascular: Regular rate/rhythm, Normal S1 S2 Capillary refill: <2 Seconds Gastrointestinal: Normal bowel sounds, No tenderness Musculoskeletal: No tenderness Integumentary: No rashes. Muscle wasting to the upper and lower extremities. Patient has chronic sacral ulcer. Neurological: Normal speech, Normal tone, Normal affect Assessment: Dehydration with moderate protein malnutrition complicated with hypernatremia and hypokalemia Elevated troponin likely ischemic demand Normocytic anemia Acute on chronic systolic congestive heart failure with ejection fraction 17% complicated with right pleural effusion Diabetes mellitus type 2 History of CAD Hypertension GERD Insomnia Chronic sacral ulcer Dysphagia Covid positive, asymptomatic Plan: Dehydration with moderate protein malnutrition complicated with hypernatremia and Hypokalemia: Patient main stable at this time. Hypernatremia improved. Continue with electrolyte replacement. Continue IV fluids. Encourage oral intake. Continue with Magic mouthwash and nystatin. Dietary to address daily needs. If the patient is able to take good oral intake will consider discharge as early as tomorrow. Patient remains DO NOT RESUSCITATE. Will discuss with daughter about plan of care. Elevated troponin likely ischemic demand: Case discussed at length with cardiology. No intervention required at this time. Continue with aspirin, Plavix. DVT prophylaxis in place. Normocytic anemia: Continue vitamin supplementation. Monitor hemoglobin. Acute on chronic systolic heart failure with ejection fraction 17% complicated with right pleural effusion: Echo reviewed. Ejection fraction 70%. Cardiology recommends no further intervention. Continue Bumex. Diabetes mellitus type 2: Continue Accu-Cheks and sliding scale. History of CAD: Continue with aspirin and Plavix. Hypertension: Continue with metoprolol. Parameters in place. GERD: Continue with Pepcid Insomnia: Continue with trazodone Chronic sacral ulcer: Wound care to evaluate and treat. Dysphagia: Continue nystatin. Continue swish and swallow solutionMagic mouthwash. Speech recommends pured diet. Will discuss with nursing to see how much she has been able to eat appropriately. Will allow family to bring in food. Covid positive asymptomatic: Patient recently hospitalized for Covid. Patient on 1 to 2 L. Overall stable. Discharge Plan: Spoke with daughter at length. Patient is DO NOT RESUSCITATE. Daughter plans to have patient return back to the halfway. No aggressive measures as per daughter. Anticipate discharge likely in the next 1 to 2 days. Code Status: DNR DVT prophylaxis: Lovenox Time Spent Managing Pts Care (In Minutes): 55
[2021-06-09] MEDS: INSULIN -REGULAR HUMAN 50 UNIT/0.5 ML ML SQ SCH ×4 (07:30→20:27)
--- NOTE | 2021-06-09 07:47 | RAD REPORT ---
EXAM DESCRIPTION: RAD - Chest Single View - 06/09/2021 6:03 am CLINICAL HISTORY: follow up COVID COMPARISON: Chest Single View dated 06/08/2021; Chest Single View dated 06/06/2021; CHEST PA AND LAT 2 VIEW dated 03/25/2008; CHEST PA AND LAT 2 VIEW dated 10/17/2007 FINDINGS: Lines: Pacemaker/ICD. Left subclavian approach Port-A-Cath with tip overlying the left bra chiocephalic vein. Lungs: Similar bilateral pulmonary edema. Pleural: Bilateral pleural effusions. Cardiac: Cardiomegaly. Status post TAVR. Bones: No acute fractures. Other: IMPRESSION: Unchanged bilateral airspace disease and pleural effusions which may reflect either mult ifocal pneumonia and/or pulmonary edema.
[2021-06-09] MEDS: CRANBERRY FRUIT EXTRACT 400 MG CAP PO SCH (09:00)
[2021-06-09] MEDS: FAMOTIDINE 20 MG TAB PO SCH (09:00)
[2021-06-09] MEDS: ASCORBIC ACID 500 MG TABLET PO SCH ×2 (09:00→20:26)
[2021-06-09] MEDS: ENOXAPARIN 30 MG/0.3 ML SQ SCH (09:00)
[2021-06-09] MEDS: MULTIVITAMIN TAB PO SCH (09:00)
[2021-06-09] MEDS: GLUCERNA SHAKE 237 ML CAN PO SCH ×3 (09:00→20:29)
[2021-06-09] MEDS: ZINC SULFATE 220 MG CAP PO SCH (09:00)
[2021-06-09] MEDS: CLOPIDOGREL 75 MG TABLET PO SCH (09:00)
[2021-06-09] MEDS: THIAMINE 200 MG/2 ML INJ IVP SCH (09:00)
[2021-06-09] MEDS: JUVEN PACKET PO SCH ×2 (09:00→20:29)
[2021-06-09] MEDS: METOPROLOL TAR 25 MG TAB PO SCH (09:00)
[2021-06-09] MEDS: NYSTATIN 500,000 UNIT/5 ML UDC PO SCH ×3 (09:00→20:26)
[2021-06-09] MEDS ORDERED: BUMETANIDE 1 MG TABLET PO SCH (09:00)
[2021-06-09] MEDS: ASPIRIN 81 MG CHEWABLE TABLET PO SCH (09:00)
[2021-06-09] MEDS: D5W 1,000 ML IV SCH ×2 (09:52→13:02)
[2021-06-09] MEDS: MEDIHONEY 44 ML TOPICAL TUBE TOP SCH (09:53)
[2021-06-09] MEDS: HYDROCODONE/APAP 7.5/325 MG TAB PO PRN (10:52)
--- NOTE | 2021-06-09 13:03 | P.CNS ---
Date of Consult: 06/09/21 Primary Care Provider: [facility] doctor Chief Complaint: Coronavirus pneumonia History of Present Illness: Patient is 85 years of age at [facility] resident admitted with shortness of breath failure to thrive not eating and drinking is to be dehy drated on admission patient is confused delirious with acrocyanosis Allergies codeine Allergy (Verified 06/07/21 05:33) Rash Penicillins Allergy (Verified 06/07/21 05:33) Rash tomato Allergy (Verified 06/07/21 05:33) Rash tetanus toxoid, adsorbed Adverse Reaction (Verified 06/07/21 05:33) Itching Home Medications: Acetaminophen 650 mg PO Q6HP PRN 06/07/21 Amino Acids/Protein Hydrolys [Pro-Stat Awc Liquid] 30 ml PO BID 06/07/21 Arginine/Ascorbate Sod/Martin AC [Arginaid Powder] 1 each PO BID 06/07/21 Ascorbic Acid [C-1000] 1,000 mg PO BID 06/07/21 Aspirin 81 mg PO DAILY 06/07/21 Atorvastatin Calcium [Lipitor] 10 mg PO BEDTIME 06/07/21 Bumetanide 2 mg PO DAILY 06/07/21 Clopidogrel Bisulfate [Plavix*] 1 tab PO DAILY 06/07/21 Collagenase [Santyl Ointment*] 1 appl TOP DAILY 06/07/21 Cranberry Conc/C/Bacill Coag [Cranberry Tablet] 1 each PO DAILY 06/07/21 Famotidine 20 mg PO DAILY 06/07/21 Fluocinonide/Emollient Base [Fluocinonide-E 0.05% Cream] 1 appl TOP DAILY 06/07/21 Lisinopril [Zestril] 2.5 mg PO DAILY 06/07/21 Metoprolol Tartrate [Lopressor*] 25 mg PO DAILY 06/07/21 Multivit-Min/Iron/Folic Acid/K [Multi-Day Plus Minerals Tablet] 1 tab PO DAILY 06/07/21 Polyethylene Glycol 3350 [Miralax] 1 packet PO DAILYPRN PRN 06/07/21 Potassium Chloride 10 meq PO DAILY 06/07/21 Trazodone HCl 50 mg PO BEDTIME 06/07/21 Zinc Sulfate [Zinc Sulfate*] 1 tab PO DAILY 06/07/21 - Past Medical/Surgical History Diabetic: Yes -: CHFunknown EF -: Diabetes mellitus type II -: Hypertension -: CAD Psychosocial/ Personal History: currently a resident at [facility] - Social History Alcohol use: No CD- Drugs: No Caffeine use: Yes Place of Residence: [facility] Review of Systems is unable to be obtained Physical Examination Temp Pulse Resp BP Pulse Ox 98.0 F 82 16 103/58 L 95 06/09/21 12:25 06/09/21 12:25 06/09/21 12:25 06/09/21 12:25 06/09/21 12:25 General: Delirious, Other (Patient has acrocyanosis) Respiratory: Clear to auscultation bilaterally Cardiovascular: No edema, Normal S1 S2 - Problems (1) 2019 novel coronavirus-infected pneumonia ([facility]IP) Current Visit: Yes Status: Acute Plan: Patient is 85 years of age admitted with shortness of breath failure to thrive not eating and drinking delirious oxygen requirements on nasal cannula oxygenation satisfactory blood cultures negative coronavirus positive diffuse bilateral changes labs reviewed Most likely dehydrated family members have refused a nasogastric or PEG tube to discharge to hospice care providing comfort care
[2021-06-09] MEDS: TRAZODONE 50 MG TABLET PO SCH (20:25)
[2021-06-09] MEDS: ATORVASTATIN 10 MG TAB PO SCH (20:25)
[2021-06-09] MEDS: PROTEIN HYDROLYS PO SCH (20:30)
[2021-06-09] MEDS: AMINO ACIDS PO SCH (20:30)
[2021-06-09] MEDS: HYDROCODONE/APAP 10/325 TAB PO PRN (23:24)
[2021-06-10] MEDS: D5W 1,000 ML IV SCH ×2 (02:22→14:09)
[2021-06-10 04:41] LABS: Absolute Lymphocytes (CBC) 1.6 K/uL (0.7-4.9); Basophils % 0.3 % (0-1.3); Hematocrit 27.4 % (36.0-45.0); Lymphocytes % 14.8 % (15.3-44.8); MPV 8.6 fL (7.6-11.3); RBC Red Blood Cell Count 2.91 M/uL (3.86-4.86)
[2021-06-10 05:35] LABS: Albumin 1.3 g/dL (3.4-5.0); Bilirubin Total 0.2 mg/dL (0.2-1.0); C-Reactive Protein 86.1 mg/L (<3.00); Ferritin 430.9 ng/mL (8-388); Magnesium 1.9 mg/dL (1.8-2.4); Potassium 4.9 mmol/L (3.5-5.1); Protein, Total 5.4 g/dL (6.4-8.2)
--- NOTE | 2021-06-10 06:08 | P.PN ---
Subjective Date of Service: 06/10/21 Primary Care Provider: long term doctor Chief Complaint: Coronavirus pneumonia Subjective: Other (Stable. Currently on 4 Liters/m) Physical Examination - Vital Signs Temperature: 97.1 F Blood Pressure: 103/57 Pulse: 90 Respirations: 16 Pulse Ox (%): 99 Assessment & Plan Discharge Plan: Home (with hospice) Plan to discharge in: 24 Hours Physician Review Additional Text: COVID: Positive CXR: COMPARISON: CHEST PA AND LAT 2 VIEW dated 03/25/2008; CHEST PA AND LAT 2 VIEW dated 10/17/2007 FINDINGS: Lines: Right subclavian approach pacemaker/ICD. Lungs: Increased prominence of the pulmonary vasculature. Pleural: Small right effusion. Cardiac: Cardiomegaly. Status post TAVR. Bones: No acute fractures. Other: Surgical clips in the right upper quadrant. Atherosclerosis. IMPRESSION: Increased prominence of the pulmonary vasculature likely representing edema. Pneumonia difficult to entirely exclude. Follow up CXR 06/09/2021: COMPARISON: Chest Single View dated 06/08/2021; Chest Single View dated 06/06/2021; CHEST PA AND LAT 2 VIEW dated 03/25/2008; CHEST PA AND LAT 2 VIEW dated 10/17/2007 FINDINGS: Lines: Pacemaker/ICD. Left subclavian approach Port-A-Cath with tip overlying the left brachiocephalic vein. Lungs: Similar bilateral pulmonary edema. Pleural: Bilateral pleural effusions. Cardiac: Cardiomegaly. Status post TAVR. Bones: No acute fractures. IMPRESSION: Unchanged bilateral airspace disease and pleural effusions which may reflect either multifocal pneumonia and/or pulmonary edema. ECHO: MEASUREMENTS (cm) DIASTOLIC (NORMALS) SYSTOLIC (NORMALS) IVSd 1.1 (0.6-1.2) LA Diam 3.9 (1.9-4.0) LVEF 17% LVIDd 5.1 (3.5-5.7) LVIDs 4.7 (2.0-3.5) %FS 8% LVPWd 1.1 (0.6-1.2) Ao Diam 1.8 (2.0-3.7) 2 DIMENSIONAL ASSESSMENT: RIGHT ATRIUM: NORMAL LEFT ATRIUM: NORMAL RIGHT VENTRICLE: NORMAL LEFT VENTRICLE: NORMAL SIZE TRICUSPID VALVE: NORMAL MITRAL VALVE: MITRAL ANNULAR CALCIFICATION PULMONIC VALVE: NORMAL AORTIC VALVE: SCLEROSIS PERICARDIAL EFFUSION: NONE AORTIC ROOT: NORMAL LEFT VENTRICULAR WALL MOTION: SEVERE GLOBAL HYPOKINESIS. DOPPLER/COLOR FLOW: MILD TRICUSPID REGURGITATION. COMMENTS: LARGE PLEURAL EFFUSION. LEFT VENTRICULAR EJECTION FRACTION 17%. SEVERE GLOBAL HYPOKINESIS. MITRAL ANNULAR CALCIFICATION. MILD TRICUSPID R EGURGITATION. NORMAL RIGHT VENTRICULAR SYSTOLIC PRESSURE. Physical exam: General: Alert, In no apparent distress, Oriented x2, Cachectic HEENT: Dry mouth improved Neck: Neck supple Respiratory: Overall improved. Currently on 1 to 2 L. Cardiovascular: Regular rate/rhythm, Normal S1 S2 Capillary refill: <2 Seconds Gastrointestinal: Normal bowel sounds, No tenderness Musculoskeletal: No tenderness Integumentary: No rashes. Muscle wasting to the upper and lower extremities. Patient has chronic sacral ulcer. Neurological: Normal speech, Normal tone, Normal affect Assessment: Dehydration with moderate protein malnutrition complicated with hypernatremia and hypokalemia Elevated troponin likely ischemic demand Normocytic anemia Acute on chronic systolic congestive heart failure with ejection fraction 17% complicated with right pleural effusion Diabetes mellitus type 2 History of CAD Hypertension GERD Insomnia Chronic sacral ulcer Dysphagia Covid positive, asymptomatic Plan: Dehydration with moderate protein malnutrition complicated with hypernatremia and Hypokalemia: At this time. Hypernatremia improved. Continue IV fluids. Spoke at length with the daughter today concerning plan of care. Daughter is planning for hospice at home. Hospice to make an assessment to determine what is needed at home tomorrow. Likely home with hospice within the next 24 to 40 hours. Elevated troponin likely ischemic demand: Case discussed at length with cardiology. No intervention required at this time. Continue with aspirin, Plavix. DVT prophylaxis in place. Normocytic anemia: Continue vitamin supplementation. Monitor hemoglobin. Acute on chronic systolic heart failure with ejection fraction 17% complicated with right pleural effusion: Echo reviewed. Ejection fraction 70%. Cardiology recommends no further intervention. Hold Bumex Diabetes mellitus type 2: Continue Accu-Cheks and sliding scale. History of CAD: Continue with aspirin and Plavix. Hypertension: Continue with metoprolol. Parameters in place. GERD: Continue with Pepcid Insomnia: Continue with trazodone Chronic sacral ulcer: Wound care to evaluate and treat. Dysphagia: Continue nystatin. Continue swish and swallow solutionMagic mouthwash. Speech recommends pured diet. Will discuss with nursing to see how much she has been able to eat appropriately. Will allow family to bring in food. Covid positive asymptomatic: Patient recently hospitalized for Covid. Patient on 1 to 2 L. Overall stable. Discharge Plan: Spoke with daughter at length. Patient is DO NOT RESUSCITATE. Daughter plans for home hospice in the next 24 to 48 hours. Code Status: DNR DVT prophylaxis: Lovenox Time Spent Managing Pts Care (In Minutes): 55
[2021-06-10] MEDS: INSULIN -REGULAR HUMAN 50 UNIT/0.5 ML ML SQ SCH ×4 (07:30→21:00)
[2021-06-10] MEDS: MULTIVITAMIN TAB PO SCH (08:02)
[2021-06-10] MEDS: FAMOTIDINE 20 MG TAB PO SCH (08:02)
[2021-06-10] MEDS: CRANBERRY FRUIT EXTRACT 400 MG CAP PO SCH (08:02)
[2021-06-10] MEDS: ASPIRIN 81 MG CHEWABLE TABLET PO SCH (08:02)
[2021-06-10] MEDS: CLOPIDOGREL 75 MG TABLET PO SCH (08:03)
[2021-06-10] MEDS: ASCORBIC ACID 500 MG TABLET PO SCH ×2 (08:03→21:45)
[2021-06-10] MEDS: JUVEN PACKET PO SCH ×2 (09:00→21:35)
[2021-06-10] MEDS: GLUCERNA SHAKE 237 ML CAN PO SCH ×3 (09:00→21:00)
[2021-06-10] MEDS: THIAMINE 200 MG/2 ML INJ IVP SCH (09:48)
[2021-06-10] MEDS: ENOXAPARIN 30 MG/0.3 ML SQ SCH (09:48)
[2021-06-10] MEDS: NYSTATIN 500,000 UNIT/5 ML UDC PO SCH ×3 (09:48→21:34)
[2021-06-10] MEDS: MEDIHONEY 44 ML TOPICAL TUBE TOP SCH (09:49)
[2021-06-10] MEDS: HYDROCODONE/APAP 10/325 TAB PO PRN ×2 (11:17→15:46)
[2021-06-10] MEDS: AMINO ACIDS PO SCH (21:00)
[2021-06-10] MEDS: PROTEIN HYDROLYS PO SCH (21:00)
[2021-06-10] MEDS: ATORVASTATIN 10 MG TAB PO SCH (21:34)
[2021-06-10] MEDS: TRAZODONE 50 MG TABLET PO SCH (21:34)
[2021-06-11] MEDS: D5W 1,000 ML IV SCH ×2 (05:03→17:53)
--- NOTE | 2021-06-11 05:50 | P.PN ---
Subjective Date of Service: 06/11/21 Primary Care Provider: group home doctor Chief Complaint: Coronavirus pneumonia Subjective: Other (Overall stable.) Physical Examination - Vital Signs Temperature: 96 F Blood Pressure: 104/42 Pulse: 84 Respirations: 19 Pulse Ox (%): 99 Assessment & Plan Discharge Plan: Home (With hospice) Plan to discharge in: 24 Hours Physician Review Additional Text: COVID: Positive CXR: COMPARISON: CHEST PA AND LAT 2 VIEW dated 03/25/2008; CHEST PA AND LAT 2 VIEW dated 10/17/2007 FINDINGS: Lines: Right subclavian approach pacemaker/ICD. Lungs: Increased prominence of the pulmonary vasculature. Pleural: Small right effusion. Cardiac: Cardiomegaly. Status post TAVR. Bones: No acute fractures. Other: Surgical clips in the right upper quadrant. Atherosclerosis. IMPRESSION: Increased prominence of the pulmonary vasculature likely representing edema. Pneumonia difficult to entirely exclude. Follow up CXR 06/09/2021: COMPARISON: Chest Single View dated 06/08/2021; Chest Single View dated 06/06/2021; CHEST PA AND LAT 2 VIEW dated 03/25/2008; CHEST PA AND LAT 2 VIEW dated 10/17/2007 FINDINGS: Lines: Pacemaker/ICD. Left subclavian approach Port-A-Cath with tip overlying the left brachiocephalic vein. Lungs: Similar bilateral pulmonary edema. Pleural: Bilateral pleural effusions. Cardiac: Cardiomegaly. Status post TAVR. Bones: No acute fractures. IMPRESSION: Unchanged bilateral airspace disease and pleural effusions which may reflect either multifocal pneumonia and/or pulmonary edema. ECHO: MEASUREMENTS (cm) DIASTOLIC (NORMALS) SYSTOLIC (NORMALS) IVSd 1.1 (0.6-1.2) LA Diam 3.9 (1.9-4.0) LVEF 17% LVIDd 5.1 (3.5-5.7) LVIDs 4.7 (2.0-3.5) %FS 8% LVPWd 1.1 (0.6-1.2) Ao Diam 1.8 (2.0-3.7) 2 DIMENSIONAL ASSESSMENT: RIGHT ATRIUM: NORMAL LEFT ATRIUM: NORMAL RIGHT VENTRICLE: NORMAL LEFT VENTRICLE: NORMAL SIZE TRICUSPID VALVE: NORMAL MITRAL VALVE: MITRAL ANNULAR CALCIFICATION PULMONIC VALVE: NORMAL AORTIC VALVE: SCLEROSIS PERICARDIAL EFFUSION: NONE AORTIC ROOT: NORMAL LEFT VENTRICULAR WALL MOTION: SEVERE GLOBAL HYPOKINESIS. DOPPLER/COLOR FLOW: MILD TRICUSPID REGURGITATION. COMMENTS: LARGE PLEURAL EFFUSION. LEFT VENTRICULAR EJECTION FRACTION 17%. SEVERE GLOBAL HYPOKINESIS. MITRAL ANNULAR CALCIFICATION. MILD TRICUSPID REGURGITATION. NORMAL RIGHT VENTRICULAR SYSTOLIC PRESSURE. Physical exam: General: Alert, In no apparent distress, Oriented x2, Cachectic. Muscle wasting noted HEENT: Dry mouth improved Neck: Neck supple Respiratory: Overall stable on 2 L. Cardiovascular: Regular rate/rhythm, Normal S1 S2 Capillary refill: <2 Seconds Gastrointestinal: Normal bowel sounds, No tenderness Musculoskeletal: No tenderness Integumentary: No rashes. Muscle wasting to the upper and lower extremities. Patient has chronic sacral ulcer. Neurological: Normal speech, Normal tone, Normal affect Assessment: Dehydration with moderate protein malnutrition complicated with hypernatremia and hypokalemia Elevated troponin likely ischemic demand Normocytic anemia Acute on chronic systolic congestive heart failure with ejection fraction 17% complicated with right pleural effusion Diabetes mellitus type 2 History of CAD Hypertension GERD Insomnia Chronic sacral ulcer Dysphagia Covid positive, asymptomatic Plan: Dehydration with moderate protein malnutrition complicated with hypernatremia and Hypokalemia: Patient stable at this time. Currently on 2 L per nasal cannula. Hypernatremia resolved. Encourage oral intake. Spoke at length with daughter yesterday. Hospice is to come and evaluate her home this morning. Daughter has decided on hospice at home. If this can be arranged today then will plan for discharge today if not tomorrow. I will turn to service over to the hospitalist team tomorrow. I will go plan of care with him. Elevated troponin likely ischemic demand: Case discussed at length with cardiology. No intervention required at this time. Continue with aspirin, Plavix. DVT prophylaxis in place. Normocytic anemia: Continue vitamin supplementation. Monitor hemoglobin. Acute on chronic systolic heart failure with ejection fraction 17% complicated with right pleural effusion: Echo reviewed. Ejection fraction 70%. Cardiology recommends no further intervention. Bumex has been discontinued due to poor oral intake. Continue aspirin and Plavix. Diabetes mellitus type 2: Continue Accu-Cheks and sliding scale. History of CAD: Continue with aspirin and Plavix. Hypertension: Blood pressure stable off metoprolol GERD: Continue with Pepcid Insomnia: Continue with trazodone Chronic sacral ulcer: Wound care to evaluate and treat. Dysphagia: Continue nystatin. Continue swish and swallow solutionMagic mouthwash. Speech recommends pured diet. Will discuss with nursing to see how much she has been able to eat appropriately. Will allow family to bring in food. Covid positive asymptomatic: Patient recently hospitalized for Covid. Patient on 2 L per nasal cannula. Overall stable. Discharge Plan: Spoke with daughter at length. Patient is DO NOT RESUSCITATE. Hospice to evaluate home and needs. Likely discharge to hospice with home as early as today or tomorrow.. Code Status: DNR DVT prophylaxis: Lovenox Time Spent Managing Pts Care (In Minutes): 55
[2021-06-11] MEDS: INSULIN -REGULAR HUMAN 50 UNIT/0.5 ML ML SQ SCH ×4 (07:30→21:00)
[2021-06-11] MEDS: CLOPIDOGREL 75 MG TABLET PO SCH (09:00)
[2021-06-11] MEDS: ASPIRIN 81 MG CHEWABLE TABLET PO SCH (09:00)
[2021-06-11] MEDS: CRANBERRY FRUIT EXTRACT 400 MG CAP PO SCH (09:00)
[2021-06-11] MEDS: MULTIVITAMIN TAB PO SCH (09:00)
[2021-06-11] MEDS: FAMOTIDINE 20 MG TAB PO SCH (09:00)
[2021-06-11] MEDS: ASCORBIC ACID 500 MG TABLET PO SCH ×2 (09:00→21:21)
[2021-06-11] MEDS: ENOXAPARIN 30 MG/0.3 ML SQ SCH (09:28)
[2021-06-11] MEDS: THIAMINE 200 MG/2 ML INJ IVP SCH (09:28)
[2021-06-11] MEDS: GLUCERNA SHAKE 237 ML CAN PO SCH ×3 (09:28→21:00)
[2021-06-11] MEDS: NYSTATIN 500,000 UNIT/5 ML UDC PO SCH ×3 (09:28→21:21)
[2021-06-11] MEDS: JUVEN PACKET PO SCH ×2 (09:28→21:00)
[2021-06-11] MEDS: MEDIHONEY 44 ML TOPICAL TUBE TOP SCH (09:30)
--- NOTE | 2021-06-11 10:28 | CON ---
Date of Consultation: 06/07/2021 Admitted on 06/07/[address] Stack. I saw the patient on the same day. Reason For Consultation: Shortness of breath. History Of Present Illness: Ms. Schuster is an 85-year-old, has a history of heart disease, diabete s mellitus, hypertension, congestive heart failure, history of urinary tract infection. She came in with shortness of breath at rest with nonproductive cough. No nausea, vomiting, diaphoresis, PND, or thopnea, pedal edema, palpitations, or syncope. She was recently in the hospital for COVID pneumonia and UTI. The patient is a do not resuscitate. Allergies: CODEINE, PENICILLIN, TETANUS, WELL TOMATO. Medications: At home include Tylenol, aspirin, Lipitor, bumetanide, Plavix, Pepcid, lisinopril, meto prolol, and potassium. Review of Systems: Negative. Social History: Positive for being a DNR. Family History: Noncontributory. Physical Examination: Vital Signs: Were stable. She was afebrile. She was in a sinus rhythm. HEENT: Negative. Neck: Supple. No bruit. Chest: Reveals some crackles at both bases. Cardiac: Exam reveals a regular rhythm and rate. No murmurs, gallops, or rubs. Abdomen: Benign. Extremities: Revealed no clubbing, cyanosis. She had trace edema. Diagnostic Data: She had a creatinine 1.32. Her white count was normal. She was anemic at 8.6. He r C-reactive protein was 86. Chest x-ray showed edema versus pneumonia. EKG showed left bundle bran ch block, sinus rhythm. Echocardiogram showed an ejection fraction of 17% with a large pleural effus ion, mitral annular calcification. Tricuspid regurgitation with normal right ventricular systolic pr essure. Impression And Plan: 1.Acute systolic congestive heart failure. Ejection fraction 70%. 2.Diabetes. 3.Hypertension. 4.History of coronary artery disease. 5.Do not resuscitate status. 6.Possible dehydration. The patient present regimen includes aspirin, Lipitor, Plavix, and Lovenox. I am not so sure she wou ld tolerate Lasix very well. She is not bleeding and I think she is dehydrated. She is a do not res uscitate and I certainly would not be willing to do any invasive cardiac workup on her at this point. I think down the road if her blood pressure tolerates it and she is eating better, we could certain ly consider a small dose of carvedilol. Case was discussed with her admitting physician. I will be available for questions if the need arises. KYLIE/ANA Voice ID: [id number] Report ID: [id number]
[2021-06-11] MEDS: HYDROCODONE/APAP 10/325 TAB PO PRN (15:38)
[2021-06-11] MEDS: AMINO ACIDS PO SCH (21:00)
[2021-06-11] MEDS: PROTEIN HYDROLYS PO SCH (21:00)
[2021-06-11] MEDS: ATORVASTATIN 10 MG TAB PO SCH (21:21)
[2021-06-11] MEDS: TRAMADOL HCL 50 MG TAB PO PRN (21:22)
[2021-06-11] MEDS: TRAZODONE 50 MG TABLET PO SCH (21:22)
[2021-06-12] MEDS: HYDROCODONE/APAP 10/325 TAB PO PRN (02:03)
[2021-06-12] MEDS: INSULIN -REGULAR HUMAN 50 UNIT/0.5 ML ML SQ SCH ×2 (07:30→11:30)
[2021-06-12] MEDS: D5W 1,000 ML IV SCH (07:42)
[2021-06-12] MEDS: MULTIVITAMIN TAB PO SCH (09:00)
[2021-06-12] MEDS: FAMOTIDINE 20 MG TAB PO SCH (09:00)
[2021-06-12] MEDS: ASCORBIC ACID 500 MG TABLET PO SCH (09:00)
[2021-06-12] MEDS: CLOPIDOGREL 75 MG TABLET PO SCH (09:00)
[2021-06-12] MEDS: NYSTATIN 500,000 UNIT/5 ML UDC PO SCH (09:00)
[2021-06-12] MEDS: THIAMINE 200 MG/2 ML INJ IVP SCH (09:00)
[2021-06-12] MEDS: ASPIRIN 81 MG CHEWABLE TABLET PO SCH (09:00)
[2021-06-12] MEDS: CRANBERRY FRUIT EXTRACT 400 MG CAP PO SCH (09:00)
[2021-06-12 10:07] VITALS: O2SAT 100
[2021-06-12] MEDS: MEDIHONEY 44 ML TOPICAL TUBE TOP SCH (10:22)
[2021-06-12] MEDS: JUVEN PACKET PO SCH (10:22)
[2021-06-12] MEDS: GLUCERNA SHAKE 237 ML CAN PO SCH (10:22)
[2021-06-12] MEDS: ENOXAPARIN 30 MG/0.3 ML SQ SCH (10:23)
[2021-06-12 12:54] VITALS: BP 93/34; TEMP 97
--- NOTE | 2021-06-19 01:13 | P.DS ---
Discharge Date: 06/12/21 Primary Care Provider: custodial doctor Disposition: HOSPICE-HOME Discharge Condition: GOOD Reason for Admission: Coronavirus pneumonia Brief History of Present Illness: 85-year-old female resident of [facility] was complaining of shortness of breath, staff reported that patient has not been eating or drinking for last 3 days. Patient appeared cachectic, dehydrated upon arrival, patient was evaluated in the emergency department labs were significant for white blood cell count 12.7 hemoglobin 8.8 hematocrit 26.8 lactic acid 2.6 procalcitonin less than 0.05 sodium 153 potassium 2.5 albumin 1.5 BUN 63 CO2 31 magnesium 1.7 creatinine 1.12 BNP significantly elevated troponin 0 0.43 chloride 118. Chest x-ray appeared to show some increased prominence of pulmonary vasculature likely representing edema. Patient was given 500 cc NS bolus and started on NS 75 cc/h in the emergency department. Daughters at bedside, patient is DNR. Patient with history of CHF, CAD, diabetes mellitus type 2, hypertension and urinary tract infections. ED provider wishes to admit for dehydration, NSTEMI, hypernatremia, hypokalemia Hospital Course: Patient did not do well during hospitalization. Patient continued to decline and had a lot of confusion. Family decided to proceed with hospice. This was established and we went ahead and arrange for discharge home with hospice care. Vital Signs/Physical Exam: Temp Pulse Resp BP Pulse Ox 97.0 F 49 L 15 93/34 L 95 06/12/21 12:00 06/12/21 12:00 06/12/21 12:00 06/12/21 12:00 06/12/21 12:00 Laboratory Data at Discharge: WBC Cancelled 06/11/21 05:00 Hgb Cancelled 06/11/21 05:00 Hct Cancelled 06/11/21 05:00 Plt Count Cancelled 06/11/21 05:00 PT 11.9 SECONDS (9.5-12.5) 06/06/21 23:00 INR 1.03 06/06/21 23:00 Sodium Cancelled 06/11/21 05:00 Potassium Cancelled 06/11/21 05:00 BUN Cancelled 06/11/21 05:00 Creatinine Cancelled 06/11/21 05:00 Glucose Cancelled 06/11/21 05:00 Magnesium Cancelled 06/11/21 05:00 Total Bilirubin Cancelled 06/11/21 05:00 AST Cancelled 06/11/21 05:00 ALT Cancelled 06/11/21 05:00 Alkaline Phosphatase Cancelled 06/11/21 05:00 Troponin I 0.32 ng/mL (0.0-0.045) H 06/07/21 12:02 Triglycerides 84 mg/dL (<150) 06/07/21 06:30 Cholesterol 68 mg/dL (<200) 06/07/21 06:30 HDL Cholesterol 43 mg/dL (40-60) 06/07/21 06:30 Cholesterol/HDL Ratio 1.58 06/07/21 06:30 Home Medications: Acetaminophen 650 mg PO Q6HP PRN 06/07/21 Amino Acids/Protein Hydrolys [Pro-Stat Awc Liquid] 30 ml PO BID 06/07/21 Arginine/Ascorbate Sod/Martin AC [Arginaid Powder] 1 each PO BID 06/07/21 Ascorbic Acid [C-1000] 1,000 mg PO BID 06/07/21 Aspirin 81 mg PO DAILY 06/07/21 Atorvastatin Calcium [Lipitor] 10 mg PO BEDTIME 06/07/21 Bumetanide 2 mg PO DAILY 06/07/21 Clopidogrel Bisulfate [Plavix*] 1 tab PO DAILY 06/07/21 Collagenase [Santyl Ointment*] 1 appl TOP DAILY 06/07/21 Cranberry Conc/C/Bacill Coag [Cranberry Tablet] 1 each PO DAILY 06/07/21 Famotidine 20 mg PO DAILY 06/07/21 Fluocinonide/Emollient Base [Fluocinonide-E 0.05% Cream] 1 appl TOP DAILY 06/07/21 Lisinopril [Zestril] 2.5 mg PO DAILY 06/07/21 Metoprolol Tartrate [Lopressor*] 25 mg PO DAILY 06/07/21 Multivit-Min/Iron/Folic Acid/K [Multi-Day Plus Minerals Tablet] 1 tab PO DAILY 06/07/21 Polyethylene Glycol 3350 [Miralax] 1 packet PO DAILYPRN PRN 06/07/21 Potassium Chloride 10 meq PO DAILY 06/07/21 Trazodone HCl 50 mg PO BEDTIME 06/07/21 Zinc Sulfate [Zinc Sulfate*] 1 tab PO DAILY 06/07/21 Physician Discharge Instructions: OK TO DC IV AND DC HOME to hospice Diet: AHA Activity: Fall precautions Followup: NONE,NONE [Primary Care Provider] - Time spent managing pt's care (in minutes): 35
== END 2021-06-12 13:25 | disposition hospice, home (50) | DRG 640 ==
LOC: ER 21:05 → 4TH 06-07 05:21 → 3RD-ICU 06-10 16:25
PROVIDERS: ADMIT Family Medicine; ATTEND Hospitalist
PROC: 05HY33Z Insertion of Infusion Device into Upper Vein, Percutaneous Approach (ICD-10-PCS; principal; 2021-06-07)
DX: E86.0 Dehydration (principal); I21.4 Non-ST elevation (NSTEMI) myocardial infarction; U07.1 COVID-19; I50.23 Acute on chronic systolic (congestive) heart failure; R64 Cachexia; Z68.1 Body mass index [BMI] 19.9 or less, adult; E44.0 Moderate protein-calorie malnutrition; I11.0 Hypertensive heart disease with heart failure; E87.0 Hyperosmolality and hypernatremia; E87.6 Hypokalemia; I25.10 Atherosclerotic heart disease of native coronary artery without angina pectoris; D64.9 Anemia, unspecified; K21.9 Gastro-esophageal reflux disease without esophagitis; G47.00 Insomnia, unspecified; L89.150 Pressure ulcer of sacral region, unstageable; I73.89 Other specified peripheral vascular diseases; E11.9 Type 2 diabetes mellitus without complications; R62.7 Adult failure to thrive; R13.10 Dysphagia, unspecified; Z88.5 Allergy status to narcotic agent; Z66 Do not resuscitate; Z88.1 Allergy status to other antibiotic agents; Z88.7 Allergy status to serum and vaccine; Z91.018 Allergy to other foods; Z79.82 Long term (current) use of aspirin; Z79.899 Other long term (current) drug therapy
CPT/HCPCS: 36415; 71045; 80048; 80053; 80061; 80076; 82607; 82728; 82746; 82947; 83540; 83605; 83735; 83880; 84132; 84145; 84439; 84443; 84466; 84484; 85025; 85610; 86140; 87040; 92526; 92610; 93005; 93306; 94640; 97161; 97165; 99251; 99285; J1650; J3010; J3411; J3475; J3480; J7030; J7040; J7050; U0003